=== PATIENT | male | born 1985 | race Caucasian/White ===

== ENCOUNTER 2021-05-03 12:44 | Emergency (ER) | payer MEDICARE, SELFPAY ==
[2021-05-03 12:45] VITALS: BP 129/96; PULSE 100; RESP 18; TEMP 35.7; O2SAT 98; BMI 25.2
--- NOTE | 2021-05-03 14:10 | EX.ED.VIS.UR ---
HPI HPI - URI History of Present Illness Chief Complaint: Sore Throat Informant: patient Narrative Narrative: Patient complains of sore throat and mild cough. No dyspnea. No myalgias. He may have had a mild fever. No nausea vomiting diarrhea. No loss of taste or smell. He has been exposed to Covid. But he is also worried about strep throat. Nothing really makes his symptoms better or worse. ROS ROS ED Constitutional Constitutional ED: Reports subjective ENT ENT ED: Reports rhinorrhea and sore throat Cardiovascular Cardiovascular: Denies chest pain or palpitations Respiratory/Chest Respiratory/Chest: Reports cough; Denies dyspnea Gastrointestinal Gastrointestinal: Denies abdominal pain, diarrhea, nausea or vomiting Genitourinary Genitourinary ED: Denies dysuria Musculoskeletal Musculoskeletal: Denies arthralgias or myalgias Integumentary Denies rash Neurologic Neurologic: Denies headache(s) or weakness Psychiatric Psychiatric: Denies depression Endocrine Endocrinology: Denies polydipsia Hematologic/Lymphatic Hematologic/Lymphatic: Denies easy bleeding or easy bruising Allergic/Immunologic Allergic/Immunologic ED: Denies urticaria PFSH PFSH Medical History no medical history Home Medications NK 05/03/21 [History Last Taken Unknown] Allergy/AdvReac Type Severity Reaction Status Date / Time No Known Allergies Allergy Verified 05/03/21 12:47 Surgical History no surgical history Social History Smoking Status: Never smoker EXAM Physical Exam Const Vital Signs: 05/03/21 12:45 Temperature 96.3 F L Temperature Source Temporal Pulse Rate 100 Respiratory Rate 18 Blood Pressure 129/96 H Blood Pressure Mean 107 Pulse Ox 98 Oxygen Delivery Method Room Air Positive well nourished General Appearance ED: NAD; Negative for cyanotic or diaphoretic HEENT HEENT Narrative: No sinus tenderness or drainage. His throat does show a moderate amount of erythema but no exudate or swelling or asymmetry. Voice is normal. Handling secretions is normal. No dental tenderness. normocephalic and atraumatic Eyes PERRL Neck no lymphadenopathy, supple and no meningeal signs Resp normal respiratory effort and clear to auscultation bilaterally Auscultation: Negative for rales, rhonchi or wheezes Cardio Rate: regular rate Rhythm: regular rhythm GI non-tender Palpation: soft Back/Spine no CVA tenderness and normal ROM Extremity normal to inspection and full ROM Neuro Sensorium / Orientation: alert Psych mental status grossly normal Skin Lesions: no lesions Rashes: no rashes MDM MDM MDM Narrative Medical decision making narrative: Patient's Covid is positive and his strep is negative. I discussed with him the plan and the course. He does not meet any criteria for monoclonal therapy. We discussed reasons to return. Lab Data Attestation: I reviewed the patient's lab results. Discharge Plan Triage Chief Complaint: Sore Throat ED Provider: Nura Sanderson Dx/Rx/DC Orders Clinical Impression: COVID Instructions: Coronavirus Disease 2019 (COVID-19): Caring for Yourself or Others Prescriptions: No Action NK RF: 0 Primary Care Provider: Care Physician,No Primary Referrals: Care Physician,No Primary [Primary Care Provider] - Rudi Badillo MD [STAFF PHYSICIAN] - 10-14 Days if not better Disposition Disposition: Home, Self Care
[2021-05-03 15:17] VITALS: RESP 17
== END 2021-05-03 15:18 | disposition home or self-care (01) ==
PROVIDERS: Emergency Provider Emergency Medicine
DX: U07.1 COVID-19 (principal)
CPT/HCPCS: 87426; 87880; 99282